=== PATIENT | male | born 1955 | race Asian ===

== ENCOUNTER 2024-02-09 04:11 | Day surgery (SDC) | payer OTHER ==
[2024-02-02 15:48] VITALS: BMI 29.1
[2024-02-09] MEDS ORDERED: SIMETHICONE 40 MG/0.6 ML BOTTLE ONE (07:11)
[2024-02-09] MEDS ORDERED: TETRACAINE/BENZOCAINE/BUTAMBEN 20 GM SPR TP ONE (07:58)
[2024-02-09 09:05] VITALS: TEMP 97.6
[2024-02-09 09:30] VITALS: PULSE 58
[2024-02-09 09:50] VITALS: BP 110/61; RESP 15
== END 2024-02-09 09:47 | disposition home or self-care (01) ==
LOC: JASU-ENDO 04:11
PROVIDERS: ATTEND Internal Medicine Gastroenterology
PROC: 0DB98ZX Excision of Duodenum, Via Natural or Artificial Opening Endoscopic, Diagnostic (ICD-10-PCS; 2024-02-09)
PROC: 0DB78ZX Excision of Stomach, Pylorus, Via Natural or Artificial Opening Endoscopic, Diagnostic (ICD-10-PCS; 2024-02-09)
PROC: 0DB68ZX Excision of Stomach, Via Natural or Artificial Opening Endoscopic, Diagnostic (ICD-10-PCS; 2024-02-09)
PROC: 0DBL8ZX Excision of Transverse Colon, Via Natural or Artificial Opening Endoscopic, Diagnostic (ICD-10-PCS; principal; 2024-02-09 08:00)
DX: Z12.11 Encounter for screening for malignant neoplasm of colon (principal); D12.3 Benign neoplasm of transverse colon; K64.8 Other hemorrhoids; K29.00 Acute gastritis without bleeding
CPT/HCPCS: 82962; 88305-TC; 88342-TC